=== PATIENT | male | born 1965 | race African-American/Black ===

== ENCOUNTER 2019-05-06 06:36 | Emergency (ER) | payer MEDICARE, MEDICAID ==
[~2019-05-06] VITALS: Ht 177.8 cm; Wt 73.0 kg
[2019-05-06] MEDS ORDERED: DEXAMETHASONE 10 MG/ML VIAL IV ONE (07:15)
[2019-05-06] MEDS ORDERED: FAMOTIDINE 20MG/2ML VIAL IV ONE (07:15)
[2019-05-06] MEDS ORDERED: DIPHENHYDRAMINE 50MG/ML VIAL IV ONE (07:15)
[2019-05-06] MEDS ORDERED: KETOROLAC 60MG/2ML VIAL IM ONE (08:15)
[2019-05-06] MEDS ORDERED: TRAMADOL 50MG TABLET PO ONE (09:00)
[2019-05-06 09:58] VITALS: BP 144/86
== END 2019-05-06 10:13 | disposition home or self-care (01) ==
LOC: ER 06:36
DX: S00.561A Insect bite (nonvenomous) of lip, initial encounter (principal); E78.00 Pure hypercholesterolemia, unspecified; I10 Essential (primary) hypertension; W57.XXXA Bitten or stung by nonvenomous insect and other nonvenomous arthropods, initial encounter; Y93.89 Activity, other specified; Y92.89 Other specified places as the place of occurrence of the external cause; Y99.8 Other external cause status; Z88.0 Allergy status to penicillin
CPT/HCPCS: 96372; 96374; 96375; 99283; J1100; J1200; J1885; J3490

== ENCOUNTER 2023-01-15 23:33 | Emergency (ER) | payer MEDICARE, MEDICAID ==
[~2023-01-15] VITALS: Ht 180.3 cm; Wt 63.0 kg
[2023-01-15 23:54] VITALS: O2SAT 100
[2023-01-16] MEDS ORDERED: IBUPROFEN 600MG TABLET PO ONE (01:00)
[2023-01-16 01:04] VITALS: BP 137/73
[2023-01-16] MEDS ORDERED: IBUP-2029 MT (01:07)
[2023-01-16 01:10] VITALS: PULSE 51; RESP 18; TEMP 97.6
== END 2023-01-16 01:11 | disposition home or self-care (01) ==
LOC: ER 23:33
DX: M79.645 Pain in left finger(s) (principal); E78.00 Pure hypercholesterolemia, unspecified; I10 Essential (primary) hypertension
CPT/HCPCS: 29125; 73140; 99283